=== PATIENT | male | born 1970 | race Caucasian/White ===

== ENCOUNTER → 2017-02-08 | Outpatient (CLI) | payer MEDICARE, OTHER ==
--- NOTE | 2017-02-09 14:51 | XR ---
EXAMINATION TYPE: XR knee complete RT DATE OF EXAM: 02/08/2017 4:22 PM COMPARISON: NONE HISTORY: Right knee pain chronic inferior patellar pain TECHNIQUE: 3 views right knee FINDINGS: No joint effusion is evident. Joint spaces are preserved. No acute fractures or dislocation s are evident. IMPRESSION: 1. Normal three-view right knee
== END ==
LOC: RADXRYALE 15:59
PROVIDERS: ATTEND Family Medicine
DX: M25.561 Pain in right knee (principal)

== ENCOUNTER → 2019-06-12 | Outpatient (CLI) | payer MEDICARE, OTHER ==
--- NOTE | 2019-06-12 23:01 | MR ---
MRI CERVICAL SPINE: CLINICAL HISTORY: Cervicalgia and disc degeneration. History of prior surgery. Neck pain for over 10 years causing pain or weakness into both arms and fingers per patient. TECHNIQUE: Multiplanar, multisequence imaging of the cervical spine is performed without and with IV contrast, 7 cc of gadolinium was given intravenously. COMPARISON: MRI cervical spine May 04, 2012. FINDINGS: Sagittal images of the cervical spine show the craniocervical junction to remain within nor mal limits. The cervical and upper thoracic spinal cord remains normal in course, caliber, and signa l. There is artifact from interval surgical change C5-C6 level. There is persistent but improved retr olisthesis C5 on C6. The vertebral body and intravertebral disk heights are normal above and below miner rgical levels. The bone marrow signal intensity is within normal limits. Suspicious postcontrast enh ancement is seen. Axial images show the C2-C3 and C3-C4 levels remain within normal limits. Axial images at C4-C5 level shows some right-sided uncovertebral facet degenerative changes causing n ew symmetric mild right-sided neural foraminal narrowing axial image 30. Axial images at C5-C6 level show artifact from surgical change with spondylolisthesis, some effacemen t of anterior thecal sac along the posterior inferior C5 level is noted. Interval improvement in disc herniation after surgery is present. Neural foramina are patent bilaterally. Axial images at C6-C7 show tiny left paracentral disc protrusion axial image 18 and sagittal image 6 only efface the anterior thecal sac. Bilateral neural foramina are patent. Axial images at C7-T1 level are within normal limits. There is persistent prominence of CSF beginning at T1 level with displacement of the cord to the righ t of midline, CSF flow artifact suspected. No significant change from prior. IMPRESSION: Interval surgery C5-C6 level with improved alignment. Some new but fairly mild degenerati ve changes C4-C5 and C6-C7 level are present.
== END ==
LOC: RADMRIMAIN 18:19 → MERGE 18:45
PROVIDERS: ATTEND Family Medicine
DX: M47.812 Spondylosis without myelopathy or radiculopathy, cervical region (principal)
CPT/HCPCS: 72156

== ENCOUNTER → 2020-01-01 | Outpatient (CLI) | payer MEDICARE, OTHER ==
--- NOTE | 2020-01-01 17:05 | US ---
EXAMINATION TYPE: US kidneys/renal and bladder DATE OF EXAM: 01/01/2020 COMPARISON: CT January 20, 2016 CLINICAL HISTORY: R31.0 hematuria, N20.0 Calculus of kidney. Recent gross hematuria; history of renal stones EXAM MEASUREMENTS: Right Kidney: 9.8 x 6.8 x 4.1 cm Left Kidney: 10.2 x 5.3 x 5.7 cm Post Void Residual Volume: 16.0 mL Right Kidney: dilated renal pelvis noted; couple of shadowing stones seen mid/lower pole with larger stone = 0.6 x 0.5 x 0.5cm. Left Kidney: shadowing stone noted mid inferior sinus = 0.4 x 0.6 x 0.3cm. Bladder: hypoechoic mass with internal calcified shadowing stone = 1.3 x 0.9 x 0.7cm is seen at right ureteral opening into bladder Bilateral Jets seen: yes Normal Post Void Residual: yes, and right ureteral stone still noted post void. Urinary bladder is lobulated with hyperechoic area containing calcification near right UVJ. Bilateral distal ureter jets are seen. Small amount of urine after voiding measures under 20 cc. Right kidney measures 9.8 cm long axis. Left kidney measures 10.2 cm long axis. Technologist identifi es some nonobstructing renal calculi bilaterally. Prominence of right renal pelvis with perhaps mild calyceal dilatation. No left-sided hydronephrosis. No aneurysmal change of visualized aorta. IMPRESSION: New hyperechoic peripheral mass or focal wall thickening with calcification within bladde r wall could reflect scattered off calculus or bladder wall mass/neoplasm. Further investigation with cystoscopy or direct visualization is advised.
== END | disposition home or self-care (01) ==
LOC: RADUSWWP 15:14
PROVIDERS: ATTEND Family Medicine
DX: N20.0 Calculus of kidney (principal); R31.0 Gross hematuria
CPT/HCPCS: 76770